=== PATIENT | male | born 1955 | race Caucasian/White ===

== ENCOUNTER 2022-05-06 11:10 | Emergency (ER) | payer MEDICARE, OTHER | END 2022-05-06 11:45 | disposition home or self-care (01) | LOC: LB.ED 11:10 | DX: S50.862A Insect bite (nonvenomous) of left forearm, initial encounter (principal); F17.210 Nicotine dependence, cigarettes, uncomplicated; Z79.82 Long term (current) use of aspirin; Z79.899 Other long term (current) drug therapy; W57.XXXA Bitten or stung by nonvenomous insect and other nonvenomous arthropods, initial encounter | CPT/HCPCS: 99282 ==

== ENCOUNTER 2024-01-03 13:01 | Emergency (ER) | payer OTHER, MEDICARE ==
[2024-01-03] MEDS ORDERED: diphenhydrAMINE 50 MG/ML SDV ONE (13:08)
[2024-01-03] MEDS ORDERED: Ketorolac 30 MG/ML SDV ONE ×2 (13:08→13:10)
[2024-01-03] MEDS ORDERED: Cetirizine 10 MG Tab ONE (13:15)
[2024-01-03] MEDS ORDERED: predniSONE 20 MG Tab ONE (13:15)
[2024-01-03] MEDS: Cetirizine 10 MG Tab PO ONE (13:36)
[2024-01-03] MEDS: predniSONE 20 MG Tab PO ONE (13:36)
[2024-01-03] MEDS: diphenhydrAMINE 50 MG/ML SDV IM ONE (13:37)
[2024-01-03] MEDS: Ketorolac 30 MG/ML SDV IM ONE (13:38)
== END 2024-01-03 14:33 | disposition home or self-care (01) ==
LOC: LB.ED 13:01
DX: S90.862A Insect bite (nonvenomous), left foot, initial encounter (principal); I10 Essential (primary) hypertension; W57.XXXA Bitten or stung by nonvenomous insect and other nonvenomous arthropods, initial encounter
CPT/HCPCS: 96372; 99283; A9270; J1200; J1885; J7512

== ENCOUNTER 2025-04-02 17:04 | Emergency (ER) | payer MEDICARE, OTHER ==
[2025-04-02 17:38] LABS: BASOPHILS ABSOLUTE AUTO 0.04 K/uL (0.02-0.10); BASOPHILS PERCENT AUTO 0.7 % (0.0-0.5); EOSINOPHILS ABSOLUTE AUTO 0.28 K/uL (0.04-0.40); EOSINOPHILS PERCENT AUTO 4.9 % (1.0-5.0); LYMPHOCYTES ABSOLUTE AUTO 1.06 K/uL (1.50-4.00); LYMPHOCYTES PERCENT AUTO 18.7 % (20.0-40.0); MEAN PLATELET VOLUME 8.9 fL (6.0-10.0); MONOCYTES ABSOLUTE AUTO 0.91 K/uL (0.20-0.80); MONOCYTES PERCENT AUTO 16.0 % (3.0-10.0); NEUTROPHILS ABSOLUTE AUTO 3.38 K/uL (2.00-7.50); NEUTROPHILS PERCENT AUTO 59.7 % (45.0-70.0); PLATELET COUNT,PLT 157 K/uL (150-400); RED BLOOD CELL COUNT 4.70 M/uL (4.50-6.50); RED CELL DISTRIBUTION WIDTH 14.9 % (11.0-16.0); WHITE BLOOD CELL COUNT,WBC 5.7 K/uL (4.0-11.0)
[2025-04-02 17:54] LABS: BLOOD UREA NITROGEN,BUN 14 mg/dL (8-26); CARBON DIOXIDE,CO2 25.7 mmol/L (21.0-32.0); CHLORIDE,CL 101 mmol/L (98-107); CREATININE 1.26 mg/dL (0.70-1.30); ESTIMATED GFR 61 mL/min (>60); GLUCOSE RANDOM 95 mg/dL (74-100); POTASSIUM,K 4.8 mmol/L (3.5-5.1); SODIUM,NA 137 mmol/L (136-145)
== END 2025-04-02 18:06 | disposition home or self-care (01) ==
LOC: LB.ED 17:04
DX: J98.9 Respiratory disorder, unspecified (principal); I10 Essential (primary) hypertension; Z79.899 Other long term (current) drug therapy
CPT/HCPCS: 36415; 71046; 80048; 85025; 87428-QW; 99285